=== PATIENT | female | born 1970 | race African-American/Black ===

== ENCOUNTER 2023-05-28 08:20 | Emergency (ER) | payer MEDICAID ==
[~2023-05-28] VITALS: Ht 160 cm; Wt 77.1 kg
[2023-05-28 08:26] VITALS: BP 222/141; PULSE 104; RESP 20; TEMP 98; O2SAT 100
[2023-05-28] MEDS ORDERED: HYDRALAZINE 20MG/ML VIAL IV ONE (10:30)
[2023-05-28] MEDS ORDERED: ACETAMINOPHEN 325MG TABLET PO ONE (10:30)
[2023-05-28] MEDS ORDERED: NITROGLYCERIN 0.1MG/HR PATCH TOP ONE (10:30)
[2023-05-28] MEDS ORDERED: LISI20TA31 MT (11:20)
[2023-05-28] MEDS ORDERED: AMLO10TA80 MT (11:20)
== END 2023-05-28 11:48 | disposition left against medical advice (07) ==
LOC: ER 08:31
DX: I10 Essential (primary) hypertension (principal); D64.9 Anemia, unspecified
CPT/HCPCS: 99281